=== PATIENT | female | born 1950 | race Caucasian/White ===

== ENCOUNTER 2017-10-21 12:30 | Emergency (ER) | payer MEDICARE, OTHER ==
[~2017-10-21] VITALS: Ht 152.4 cm; Wt 65.9 kg
[~2017-10-21 12:30] MED LIST: AMLO-511 PO; AMLO1TAB30 PO; ASPI81TA33 PO; ATOR40TA71 PO; B CO1CAP4 PO; DSS100 PO; ENAL5 PO; FURO80 PO; HYDR-4174 PO; LEVO75 PO; METO25 PO; METO5TAB95 PO; NYST30CR9 TP; PANT40TA25 PO; PHOSLOC PO; VITAD1000 PO
[2017-10-21 12:37] VITALS: BP 155/66
[2017-10-21] MEDS ORDERED: CLOP75 PO (12:43)
[2017-10-21] MEDS ORDERED: METO25 PO (12:43)
[2017-10-21] MEDS ORDERED: ENAL10TA2 PO (12:43)
[2017-10-21 12:47] LABS: GLUCOSE,POINT OF CARE 188 MG/DL (70-110)
== END 2017-10-21 15:59 | disposition left against medical advice (07) ==
LOC: EMS 12:32
DX: Z53.21 Procedure and treatment not carried out due to patient leaving prior to being seen by health care provider (principal)
CPT/HCPCS: 82962

== ENCOUNTER 2018-01-20 11:39 | Emergency (ER) | payer MEDICARE, OTHER ==
[~2018-01-20] VITALS: Ht 153 cm; Wt 65.0 kg
[~2018-01-20 11:39] MED LIST changes: -AMLO-511 PO; -ASPI81TA33 PO; -B CO1CAP4 PO; +CLOP75 PO; -DSS100 PO; +ENAL10TA2 PO; -ENAL5 PO; -FURO80 PO; -METO5TAB95 PO; -NYST30CR9 TP; -PANT40TA25 PO; -PHOSLOC PO; -VITAD1000 PO
[2018-01-20 12:08] LABS: GLUCOSE,POINT OF CARE 225 MG/DL (70-110)
[2018-01-20] MEDS ORDERED: KETOROLAC TROMETHAMINE 10 MG TABLET PO ONE (13:30)
[2018-01-20 14:13] VITALS: BP 152/63
== END 2018-01-20 14:39 | disposition home or self-care (01) ==
LOC: EMS 11:40
DX: B02.9 Zoster without complications (principal); M79.604 Pain in right leg; E03.9 Hypothyroidism, unspecified; E11.9 Type 2 diabetes mellitus without complications; E78.00 Pure hypercholesterolemia, unspecified; I10 Essential (primary) hypertension; Z86.718 Personal history of other venous thrombosis and embolism; Z86.73 Personal history of transient ischemic attack (TIA), and cerebral infarction without residual deficits; Z99.2 Dependence on renal dialysis; Z95.1 Presence of aortocoronary bypass graft; Z79.899 Other long term (current) drug therapy
CPT/HCPCS: 93971; 99284